=== PATIENT | female | born 1995 | race Caucasian/White ===

== ENCOUNTER 2017-09-12 10:13 | Outpatient (CLI) | payer OTHER, MEDICAID ==
[2017-09-12 11:27] LABS: HEMATOCRIT 39.6 % (36.0-47.0); HEMOGLOBIN 13.6 g/dl (12.0-16.0); MEAN CORPUSCULAR HEMOGLOBIN 29.3 pg (27.0-33.0); MEAN CORPUSCULAR HGB CONC 34.3 g/dl (32.0-36.5); MEAN CORPUSCULAR VOLUME 85.3 fl (80.0-96.0); PLATELET COUNT, AUTOMATED 283 10^3/uL (150-450); RED BLOOD COUNT 4.64 10^6/uL (4.00-5.40); RED CELL DISTRIBUTION WIDTH 12.6 % (11.5-14.5); WHITE BLOOD COUNT 14.1 10^3/uL (4.0-10.0)
[2017-09-12] MEDS: NS 1,000 ML IV ×2 (11:27→13:40)
[2017-09-12] MEDS: ONDANSETRON 4 MG ORAL DISINTEGRATING TAB (S0181) SL (11:43)
[2017-09-12 11:56] LABS: AMPHETAMINES URINE REFLEX NEGATIVE (NEGATIVE); BARBITURATES URINE REFLEX NEGATIVE (NEGATIVE); BENZODIAZEPINES URINE REFLEX NEGATIVE (NEGATIVE); CANNABINOIDS URINE REFLEX NEGATIVE (NEGATIVE); COCAINE METABOLITE URINE REFLE NEGATIVE (NEGATIVE); METHADONE URINE REFLEX NEGATIVE (NEGATIVE); OPIATES URINE REFLEX NEGATIVE (NEGATIVE); PHENCYCLIDINE URINE REFLEX NEGATIVE (NEGATIVE)
[2017-09-12 12:01] LABS: ALBUMIN/GLOBULIN RATIO 0.83 (1.00-1.93); ALKALINE PHOSPHATASE 85 U/L (45-117); ALT/SGPT 15 U/L (12-78); AMYLASE 66 U/L (25-115); ANION GAP 11 MEQ/L (8-16); AST/SGOT 19 U/L (7-37); BILIRUBIN,TOTAL 0.6 MG/DL (0.2-1.0); BLOOD UREA NITROGEN 6 MG/DL (7-18); CALCIUM LEVEL 8.8 MG/DL (8.5-10.1); CARBON DIOXIDE LEVEL 24 MEQ/L (21-32); CHLORIDE LEVEL 106 MEQ/L (98-107); CREATININE FOR GFR 0.51 MG/DL (0.55-1.30); GLOMERULAR FILTRATION RATE > 60.0 (>60); GLUCOSE, FASTING 109 MG/DL (70-100); LIPASE 143 U/L (73-393); POTASSIUM SERUM 3.6 MEQ/L (3.5-5.1); SODIUM LEVEL 141 MEQ/L (136-145); TOTAL PROTEIN 6.6 GM/DL (6.4-8.2)
[2017-09-12] MEDS: SODIUM CHLORIDE 0.9% 1000 ML IV (13:41)
[2017-09-12 14:52] LABS: APPEARANCE, URINE HAZY (CLEAR); BACTERIA, URINE AUTO NEGATIVE (NEGATIVE); BILIRUBIN, URINE AUTO NEGATIVE (NEGATIVE); BLOOD, URINE BLOOD NEGATIVE (NEGATIVE); COLOR, URINE YELLOW (YELLOW); GLUCOSE, URINE (UA) AUTO 1+ mg/dL (NEGATIVE); KETONE, URINE AUTO 2+ mg/dL (NEGATIVE); LEUKOCYTE ESTERASE, URINE AUTO TRACE (NEGATIVE); MUCUS, URINE SMALL (NEGATIVE); NITRITE, URINE AUTO NEGATIVE (NEGATIVE); PROTEIN, URINE AUTO 1+ mg/dL (NEGATIVE); RBC, URINE AUTO 5 /HPF (0-3); SPECIFIC GRAVITY URINE AUTO 1.023 (1.002-1.035); SQUAMOUS EPITHELIAL CELL UR AU 3 /HPF (0-6); UROBILINOGEN, URINE AUTO 0.2 mg/dL (0.0-2.0); WBC, URINE AUTO 10 /HPF (0-3)
== END 2017-09-12 16:10 | disposition home or self-care (01) ==
LOC: M LDO 10:13
DX: O99.89 Other specified diseases and conditions complicating pregnancy, childbirth and the puerperium (principal); K29.00 Acute gastritis without bleeding; R11.0 Nausea; Z3A.28 28 weeks gestation of pregnancy
CPT/HCPCS: 82150

== ENCOUNTER → 2017-09-23 | Outpatient (CLI) | payer OTHER, MEDICAID ==
[2017-09-23 13:58] LABS: APPEARANCE, URINE MANUAL CLOUDY (CLEAR)
[2017-09-23 13:59] LABS: COLOR, URINE MANUAL AMBER (YELLOW); GLUCOSE, URINE (UA) MANUAL NEGATIVE (NEGATIVE); KETONE, URINE MANUAL NEGATIVE (NEGATIVE); PROTEIN, URINE MANUAL 1+ mg/dL (NEGATIVE)
[2017-09-23 14:00] LABS: BILIRUBIN, URINE MANUAL NEGATIVE (NEGATIVE); BLOOD URINE MANUAL POSITIVE (NEGATIVE); MICROSCOPIC INDICATED? MAN YES (NO); NITRITE, URINE MANUAL NEGATIVE (NEGATIVE); UROBILINOGEN, URINE MANUAL NORMAL (NORMAL)
[2017-09-23 14:02] LABS: LEUKOCYTE ESTERASE, URINE MAN POSITIVE (NEGATIVE)
[2017-09-23 14:03] LABS: BACTERIA, URINE SMALL AMOUNT; HYALINE CAST, URINE NONE SEEN /lpf (0-1); MICROSCOPIC EXAM PERFORMED; RBC, URINE TNTC /hpf (0-3); SQUAMOUS EPITHELIAL CELL URINE MOD AMOUNT /hpf (SMALL AMT)
[2017-09-23 14:06] LABS: BASO # 0.1 10^3/uL (0.0-0.2); BASO % 0.3 % (0.0-1.0); EOS # 0.1 10^3/uL (0.0-0.50); EOS % 0.7 % (0.0-3.0); HEMATOCRIT 34.2 % (36.0-47.0); HEMOGLOBIN 11.5 g/dl (12.0-16.0); IMMATURE GRANULOCYTE % 2.8 % (0-3.0); LYMPH # 2.5 10^3/uL (1.5-6.5); LYMPH % 17.2 % (24.0-44.0); MEAN CORPUSCULAR HEMOGLOBIN 29.2 pg (27.0-33.0); MEAN CORPUSCULAR HGB CONC 33.6 g/dl (32.0-36.5); MEAN CORPUSCULAR VOLUME 86.8 fl (80.0-96.0); MONO # 1.1 10^3/uL (0.0-0.8); MONO % 7.1 % (0.0-5.0); NEUTROPHILS # 10.6 10^3/uL (1.8-7.7); NEUTROPHILS % 71.9 % (36.0-66.0); PLATELET COUNT, AUTOMATED 337 10^3/uL (150-450); RED BLOOD COUNT 3.94 10^6/uL (4.00-5.40); RED CELL DISTRIBUTION WIDTH 12.5 % (11.5-14.5); WHITE BLOOD COUNT 14.7 10^3/uL (4.0-10.0)
[2017-09-23 14:16] LABS: GLUCOSE CHALLENGE TEST 1 HOUR 151 MG/DL (LESS THAN 140)
== END ==
LOC: M LAB 12:14
DX: Z34.83 Encounter for supervision of other normal pregnancy, third trimester (principal)
CPT/HCPCS: 82950

== ENCOUNTER → 2017-09-26 | Outpatient (CLI) | payer OTHER, MEDICAID ==
[2017-09-26 07:49] LABS: GLUCOSE, FASTING 86 MG/DL (LESS THAN 95)
[2017-09-26 09:02] LABS: 1 HR GLUCOSE 183 MG/DL (LESS THAN 180)
[2017-09-26 09:39] LABS: 2 HR GLUCOSE 149 MG/DL (LESS THAN 155)
[2017-09-26 10:53] LABS: 3 HR GLUCOSE 123 MG/DL (LESS THAN 140)
== END ==
LOC: M LAB 06:52
DX: Z36.89 Encounter for other specified antenatal screening (principal); Z3A.00 Weeks of gestation of pregnancy not specified
CPT/HCPCS: 82951

== ENCOUNTER → 2017-10-01 | Outpatient (CLI) | payer OTHER, MEDICAID | LOC: M RAD 09:05 | DX: R10.13 Epigastric pain (principal) | CPT/HCPCS: 76705 ==

== ENCOUNTER → 2017-11-04 | Outpatient (REF) | payer OTHER, MEDICAID | LOC: M LAB REF 16:49 | DX: Z34.83 Encounter for supervision of other normal pregnancy, third trimester (principal) | CPT/HCPCS: 87186 ==

== ENCOUNTER 2017-12-11 23:54 | Inpatient (IN) | payer OTHER, MEDICAID ==
[2017-12-12] MEDS: PENICILLIN G POTASSIUM IV 5 MU in D5W MINI-BAG PLUS 100 ML IV (01:16)
[2017-12-12] MEDS: LR 1,000 ML IV (01:16)
[2017-12-12] MEDS: miSOPROStol 50 MCG 1/2 TAB (S0191) SL ×2 (01:16→05:00)
[2017-12-12] MEDS ORDERED: TERBUTALINE SULFATE 1 MG/ML VIAL (J3105) As Ordered (01:31)
[2017-12-12 01:39] LABS: HEMOGLOBIN 11.7 g/dl (12.0-15.5); MEAN CORPUSCULAR HEMOGLOBIN 27.3 pg (27.0-33.0); MEAN CORPUSCULAR HGB CONC 33.4 g/dl (32.0-36.5); MEAN CORPUSCULAR VOLUME 81.6 fl (80.0-96.0); PLATELET COUNT, AUTOMATED 356 10^3/uL (150-450); RED BLOOD COUNT 4.29 10^6/uL (4.00-5.40); RED CELL DISTRIBUTION WIDTH 14.4 % (11.5-14.5); WHITE BLOOD COUNT 12.8 10^3/uL (4.0-10.0)
[2017-12-12] MEDS: TERBUTALINE SULFATE 1 MG/ML VIAL (J3105) SC (01:40)
[2017-12-12] MEDS: LACTATED RINGER'S 1000 ML IV (04:18)
[2017-12-12] MEDS: PENICILLIN G POTASSIUM IV 2.5 MU in APPROPRIATE DILUENT 1 EA IV ×3 (05:26→16:47)
[2017-12-12] MEDS ORDERED: OXYTOCIN DRIP 30 UNITS in APPROPRIATE DILUENT 1 EA IV ×2 (09:00→20:53)
[2017-12-12] MEDS ORDERED: FENTANYL 2MCG/ML ROPIVACAINE 0.2% IN 0.9% NACL 200ML IVBAG As Ordered (09:53)
[2017-12-12] MEDS ORDERED: ePHEDrine SULFATE 25 MG/5 ML(5MG/ML) SYRINGE As Ordered (12:35)
[2017-12-12] MEDS: ePHEDrine SULFATE 25 MG/5 ML(5MG/ML) SYRINGE IV ×2 (12:54→13:14)
[2017-12-12] MEDS ORDERED: REFRIGERATOR IV KEYS XX (13:00)
[2017-12-12] MEDS ORDERED: EPIDURAL COMMENT XX (13:00)
[2017-12-12] MEDS ORDERED: NALOXONE INJ 0.4 MG/1 ML VIAL (J2310) IV (13:00)
[2017-12-12] MEDS ORDERED: LACTATED RINGER'S 1000 ML IV (13:00)
[2017-12-12] MEDS ORDERED: EPIDURAL/PCA KEYS XX (13:00)
[2017-12-12] MEDS ORDERED: diphenhydrAMINE INJ 50MG/ML VIAL (J1200) IV (13:00)
[2017-12-12] MEDS ORDERED: ONDANSETRON 4MG/2ML VIAL (J2405) IV (13:00)
[2017-12-12] MEDS ORDERED: FENTANYL/ROPIVACAINE/NACL BAG 200 ML EPIDURAL (13:00)
[2017-12-12 20:02] LABS: CORD GAS ABE V -9.1; CORD GAS O2 SAT V 51.6 %; CORD GAS PCO2 V 48.5 mmHg; CORD GAS SBC V 16.3 MEQ/L; CORD GAS TCO2 V 20.5 MEQ/L
[2017-12-12 20:03] LABS: CORD GAS ABE A -10.1; CORD GAS HCO3 A 20.2 MEQ/L; CORD GAS O2 SAT A 24.9 %; CORD GAS PCO2 A 61.9 mmHg; CORD GAS PH A 7.131 UNITS; CORD GAS PO2 A 17.8 mmHg; CORD GAS TCO2 A 22.1 MEQ/L
[2017-12-12] MEDS ORDERED: DIBUCAINE 1% OINTMENT 30GM TOP (21:00)
[2017-12-12] MEDS ORDERED: ANUSOL HC CREAM 30GM TOP (21:00)
[2017-12-12] MEDS ORDERED: RHOGAM 300 MCG (1500 IU) INJ (J2790) IM (21:00)
[2017-12-12] MEDS ORDERED: MEASLES,MUMPS,RUBELLA VACCINE INJ (MMR-II) (90707) SC (21:00)
[2017-12-12] MEDS ORDERED: MOM 30ML SUSPENSION UDC PO (21:00)
[2017-12-12] MEDS ORDERED: METHYLERGONOVINE MALEATE 0.2 MG TAB PO (21:00)
[2017-12-12] MEDS ORDERED: DOCUSATE SODIUM 100 MG CAP PO (21:00)
[2017-12-13] MEDS: ACETAMINOPHEN 500 MG TAB PO ×2 (05:39→14:18)
[2017-12-13] MEDS: PRENATAL VITAMINS CHEWABLE TABLET PO (08:41)
[2017-12-14] MEDS: IBUPROFEN 800 MG TAB PO (01:23)
[2017-12-14] MEDS: PRENATAL VITAMINS CHEWABLE TABLET PO (08:03)
[2017-12-14] MEDS: ACETAMINOPHEN 500 MG TAB PO (08:03)
[2017-12-14] MEDS: ADACEL/BOOSTRIX VACCINE (DIPHTH/PERTUSS/ACELL/TETANUS)0.5ML SYR (90715) IM (13:30)
== END 2017-12-14 13:50 | disposition home or self-care (01) | DRG 540 ==
LOC: M LDI 23:54 → M OBS 12-12 21:46
PROVIDERS: Obstetrics & Gynecology
PROC: 3E0DXGC Introduction of Other Therapeutic Substance into Mouth and Pharynx, External Approach (ICD-10-PCS; 2017-12-11)
PROC: 10D00Z1 Extraction of Products of Conception, Low, Open Approach (ICD-10-PCS; principal; 2017-12-12)
DX: O66.0 Obstructed labor due to shoulder dystocia (principal); O48.0 Post-term pregnancy; Z37.0 Single live birth; Z3A.41 41 weeks gestation of pregnancy

== ENCOUNTER → 2022-01-09 | Outpatient (REF) | payer MEDICAID ==
[~2022-01-09] MED LIST: MOTR200T44 PO; PRENTAB9 PO; TYLE325T5 PO; ZOFR4TAB14 PO
[2022-01-09 13:22] LABS: APPEARANCE, URINE CLEAR (CLEAR); BACTERIA, URINE AUTO 1+ (NEGATIVE); BILIRUBIN, URINE AUTO NEGATIVE (NEGATIVE); BLOOD, URINE BLOOD NEGATIVE (NEGATIVE); COLOR, URINE COLORLESS (YELLOW); GLUCOSE, URINE (UA) AUTO NEGATIVE (NEGATIVE); KETONE, URINE AUTO NEGATIVE (NEGATIVE); LEUKOCYTE ESTERASE, URINE AUTO NEGATIVE (NEGATIVE); NITRITE, URINE AUTO NEGATIVE (NEGATIVE); PROTEIN, URINE AUTO NEGATIVE (NEGATIVE); RBC, URINE AUTO 0 /HPF (0-3); SPECIFIC GRAVITY URINE AUTO 1.001 (1.002-1.035); SQUAMOUS EPITHELIAL CELL UR AU 0 /HPF (0-6); UROBILINOGEN, URINE AUTO 0.2 mg/dL (0.0-2.0); WBC, URINE AUTO 0 /HPF (0-3)
== END ==
LOC: M LAB REF 09:00
PROVIDERS: ATTEND Physician Assistant Medical
DX: N39.0 Urinary tract infection, site not specified (principal)

== ENCOUNTER → 2022-01-10 | Outpatient (CLI) | payer MEDICAID ==
[2022-01-09 13:22] LABS: APPEARANCE, URINE CLEAR (CLEAR); BACTERIA, URINE AUTO 1+ (NEGATIVE); BILIRUBIN, URINE AUTO NEGATIVE (NEGATIVE); BLOOD, URINE BLOOD NEGATIVE (NEGATIVE); COLOR, URINE COLORLESS (YELLOW); GLUCOSE, URINE (UA) AUTO NEGATIVE (NEGATIVE); KETONE, URINE AUTO NEGATIVE (NEGATIVE); LEUKOCYTE ESTERASE, URINE AUTO NEGATIVE (NEGATIVE); NITRITE, URINE AUTO NEGATIVE (NEGATIVE); PROTEIN, URINE AUTO NEGATIVE (NEGATIVE); RBC, URINE AUTO 0 /HPF (0-3); SPECIFIC GRAVITY URINE AUTO 1.001 (1.002-1.035); SQUAMOUS EPITHELIAL CELL UR AU 0 /HPF (0-6); UROBILINOGEN, URINE AUTO 0.2 mg/dL (0.0-2.0); WBC, URINE AUTO 0 /HPF (0-3)
== END ==
LOC: M WHC 01-09 11:48
PROVIDERS: ATTEND Physician Assistant Medical
DX: N39.0 Urinary tract infection, site not specified (principal); N83.202 Unspecified ovarian cyst, left side

== ENCOUNTER → 2022-02-05 | Outpatient (REF) | payer MEDICAID | LOC: M LAB REF 11:08 | PROVIDERS: ATTEND Physician Assistant Medical | DX: J02.9 Acute pharyngitis, unspecified (principal); R05.9 Cough, unspecified ==

== ENCOUNTER → 2022-05-08 | Outpatient (REF) | payer OTHER | LOC: M LAB REF 17:44 | PROVIDERS: ATTEND Physician Assistant | DX: Z12.4 Encounter for screening for malignant neoplasm of cervix (principal); Z87.42 Personal history of other diseases of the female genital tract ==

== ENCOUNTER → 2022-06-12 | Outpatient (REF) | payer OTHER | LOC: M LAB REF 17:17 | PROVIDERS: ATTEND Physician Assistant | DX: Z32.01 Encounter for pregnancy test, result positive (principal) ==

== ENCOUNTER 2022-07-22 17:48 | Emergency (ER) | payer OTHER ==
[~2022-07-22] VITALS: Ht 160 cm; Wt 72.7 kg
[2022-07-22] MEDS ORDERED: ANTIBIOT (18:01)
[2022-07-22] MEDS ORDERED: ONDA4TAB6 PO (18:01)
[2022-07-22 19:47] LABS: BASO % 0.3 % (0.0-1.0); EOS # 0.1 10^3/uL (0.0-0.5); EOS % 0.4 % (0.0-3.0); HEMOGLOBIN 12.9 g/dl (12.0-15.5); LYMPH # 2.3 10^3/uL (1.5-5.0); LYMPH % 19.8 % (24.0-44.0); MEAN CORPUSCULAR HEMOGLOBIN 28.2 pg (27.0-33.0); MEAN CORPUSCULAR HGB CONC 33.9 g/dl (32.0-36.5); MEAN CORPUSCULAR VOLUME 83.2 fl (80.0-96.0); MONO # 0.8 10^3/uL (0.0-0.8); MONO % 6.9 % (2.0-8.0); NEUTROPHILS # 8.3 10^3/uL (1.5-8.5); NEUTROPHILS % 72.3 % (36.0-66.0); PLATELET COUNT, AUTOMATED 359 10^3/uL (150-450); RED BLOOD COUNT 4.57 10^6/uL (4.00-5.40); WHITE BLOOD COUNT 11.5 10^3/uL (4.0-10.0)
[2022-07-22 20:16] LABS: BLOOD UREA NITROGEN 6 MG/DL (9-23); CALCIUM LEVEL 9.2 MG/DL (8.5-10.1); CARBON DIOXIDE LEVEL 24 MMOL/L (20-31); CHLORIDE LEVEL 103 MMOL/L (98-107); CREATININE FOR GFR 0.43 MG/DL (0.55-1.30); GLOMERULAR FILTRATION RATE > 60.0 (>60); GLUCOSE, FASTING 83 MG/DL (60-100); POTASSIUM SERUM 3.9 MMOL/L (3.5-5.1); SODIUM LEVEL 136 MMOL/L (136-145)
[2022-07-22 20:44] LABS: HCG, SERUM QUANTITATIVE 162034.7 MIU/ML (<4.2)
[2022-07-22] MEDS ORDERED: NS 1,000 ML IV ONE (20:55)
[2022-07-22] MEDS ORDERED: METOCLOPRAMIDE INJ 10MG/2ML VIAL IV ONE (20:55)
[2022-07-22] MEDS ORDERED: REGL5TAB2 PO ×2 (22:25→22:42)
[2022-07-22 22:40] VITALS: BP 117/70
== END 2022-07-22 22:45 | disposition home or self-care (01) ==
LOC: M ED 17:48
DX: O21.9 Vomiting of pregnancy, unspecified (principal); O99.341 Other mental disorders complicating pregnancy, first trimester; Z3A.11 11 weeks gestation of pregnancy

== ENCOUNTER 2022-09-26 11:15 | Outpatient (CLI) | payer OTHER ==
[2022-09-26] VITALS (7 sets, daily range): BP systolic 104–128; BP diastolic 58–83
[~2022-09-26] VITALS: Ht 160 cm; Wt 75.5 kg
[~2022-09-26 11:15] MED LIST changes: +ANTIBIOT; +ONDA4TAB6 PO; +REGL5TAB2 PO
[2022-09-26] MEDS ORDERED: LR 1,000 ML IV ONE (11:40)
[2022-09-26 12:56] LABS: BASO % 0.3 % (0.0-1.0); EOS # 0.1 10^3/uL (0.0-0.5); EOS % 0.8 % (0.0-3.0); HEMATOCRIT 37.6 % (36.0-47.0); HEMOGLOBIN 12.8 g/dl (12.0-15.5); LYMPH # 1.7 10^3/uL (1.5-5.0); LYMPH % 16.8 % (24.0-44.0); MEAN CORPUSCULAR VOLUME 85.3 fl (80.0-96.0); MONO # 0.7 10^3/uL (0.0-0.8); MONO % 7.4 % (2.0-8.0); NEUTROPHILS # 7.4 10^3/uL (1.5-8.5); NEUTROPHILS % 74.3 % (36.0-66.0); PLATELET COUNT, AUTOMATED 246 10^3/uL (150-450); RED BLOOD COUNT 4.41 10^6/uL (4.00-5.40); WHITE BLOOD COUNT 9.9 10^3/uL (4.0-10.0)
== END 2022-09-26 14:53 | disposition home or self-care (01) ==
LOC: M LDO 11:15
PROVIDERS: ATTEND Registered Nurse
DX: O99.282 Endocrine, nutritional and metabolic diseases complicating pregnancy, second trimester (principal); E86.0 Dehydration; O21.8 Other vomiting complicating pregnancy; O26.892 Other specified pregnancy related conditions, second trimester; R42 Dizziness and giddiness; R53.1 Weakness; Z3A.20 20 weeks gestation of pregnancy
CPT/HCPCS: 59025; 85025; 96360; G0463

== ENCOUNTER 2022-12-25 13:43 | Outpatient (CLI) | payer OTHER ==
[~2022-12-25] VITALS: Ht 160 cm; Wt 84.1 kg
[2022-12-25 14:05] VITALS: BP 113/69
[2022-12-25] MEDS ORDERED: FAMO20TA5 PO (14:13)
[2022-12-25] MEDS ORDERED: HOME MED LIST COMPLETE! XX SCH (14:15)
[2022-12-25] MEDS ORDERED: ACETAMINOPHEN 500 MG TAB PO ONE (14:50)
[2022-12-25 15:17] LABS: APPEARANCE, URINE CLEAR (CLEAR); BACTERIA, URINE AUTO NEGATIVE (NEGATIVE); BILIRUBIN, URINE AUTO NEGATIVE (NEGATIVE); BLOOD, URINE BLOOD NEGATIVE (NEGATIVE); COLOR, URINE YELLOW (YELLOW); GLUCOSE, URINE (UA) AUTO NEGATIVE (NEGATIVE); KETONE, URINE AUTO NEGATIVE (NEGATIVE); LEUKOCYTE ESTERASE, URINE AUTO NEGATIVE (NEGATIVE); MUCUS, URINE SMALL (NEGATIVE); NITRITE, URINE AUTO NEGATIVE (NEGATIVE); PROTEIN, URINE AUTO NEGATIVE (NEGATIVE); RBC, URINE AUTO 2 /HPF (0-3); SPECIFIC GRAVITY URINE AUTO 1.012 (1.002-1.035); SQUAMOUS EPITHELIAL CELL UR AU 1 /HPF (0-6); UROBILINOGEN, URINE AUTO 0.2 mg/dL (0.0-2.0); WBC, URINE AUTO 2 /HPF (0-3)
== END 2022-12-25 15:35 | disposition home or self-care (01) ==
LOC: M LDO 13:43
PROVIDERS: ATTEND Obstetrics & Gynecology
DX: O26.893 Other specified pregnancy related conditions, third trimester (principal); M54.50 Low back pain, unspecified; R25.2 Cramp and spasm; Z3A.33 33 weeks gestation of pregnancy
CPT/HCPCS: 59025; 81001; G0463

== ENCOUNTER → 2023-01-10 | Outpatient (REF) | payer OTHER ==
[~2023-01-10] MED LIST changes: +FAMO20TA5 PO
== END ==
LOC: M SFHCWAGY 13:14
PROVIDERS: ATTEND Obstetrics & Gynecology
DX: O09.293 Supervision of pregnancy with other poor reproductive or obstetric history, third trimester (principal)

== ENCOUNTER → 2023-08-13 | Outpatient (REF) | payer OTHER | LOC: M SFHCWAGY 17:50 | PROVIDERS: ATTEND Obstetrics & Gynecology | DX: Z01.419 Encounter for gynecological examination (general) (routine) without abnormal findings (principal) ==

== ENCOUNTER → 2024-12-03 | Outpatient (REF) | payer OTHER ==
[~2024-12-03] MED LIST changes: +ONDA-282 PO; -ONDA4TAB6 PO
== END ==
LOC: M SFHCWAGY 10:21
PROVIDERS: ATTEND Obstetrics & Gynecology
DX: Z12.4 Encounter for screening for malignant neoplasm of cervix (principal); R87.610 Atypical squamous cells of undetermined significance on cytologic smear of cervix (ASC-US)

== ENCOUNTER → 2025-03-18 | Outpatient (CLI) | payer OTHER ==
[2025-03-18 13:31] LABS: PLATELET COUNT, AUTOMATED 280 10^3/uL (150-450)
[2025-03-18 13:59] LABS: HIV 1&2 SCREEN NEGATIVE (NEGATIVE)
[2025-03-18 14:08] LABS: HEPATITIS C VIRUS ABY INDEX < 0.02 INDEX (<0.8)
[2025-03-18 14:41] LABS: Trichomonas vaginalis (AMP) NOT DETECTED (NEGATIVE)
[2025-03-18 15:06] LABS: GC DNA AMPLIFICATION NEGATIVE (NEGATIVE)
== END ==
LOC: M PLALAB 10:48
PROVIDERS: ATTEND Advanced Practice Midwife
DX: O09.299 Supervision of pregnancy with other poor reproductive or obstetric history, unspecified trimester (principal); Z3A.00 Weeks of gestation of pregnancy not specified

== ENCOUNTER → 2025-03-25 | Outpatient (CLI) | payer OTHER | LOC: M PLALAB 11:02 | PROVIDERS: ATTEND Advanced Practice Midwife | DX: Z53.20 Procedure and treatment not carried out because of patient's decision for unspecified reasons (principal) ==

== ENCOUNTER → 2025-05-18 | Outpatient (CLI) | payer OTHER | LOC: M WHC 09:58 | PROVIDERS: ATTEND Nurse Practitioner Family | DX: Z34.80 Encounter for supervision of other normal pregnancy, unspecified trimester (principal) ==

== ENCOUNTER 2025-05-28 17:20 | Outpatient (CLI) | payer OTHER ==
[~2025-05-28] VITALS: Ht 165.1 cm; Wt 84.5 kg
[2025-05-28 17:36] VITALS: BP 127/77
[2025-05-28] MEDS ORDERED: HOME MED LIST COMPLETE! XX SCH (17:50)
[2025-05-28 19:01] LABS: PLATELET COUNT, AUTOMATED 276 10^3/uL (150-450)
[2025-05-28 19:08] LABS: AMORPHOUS SEDIMENT SMALL (NEGATIVE); APPEARANCE, URINE CLEAR (CLEAR); BACTERIA, URINE AUTO NEGATIVE (NEGATIVE); BILIRUBIN, URINE AUTO NEGATIVE (NEGATIVE); BLOOD, URINE BLOOD NEGATIVE (NEGATIVE); GLUCOSE, URINE (UA) AUTO NEGATIVE (NEGATIVE); KETONE, URINE AUTO NEGATIVE (NEGATIVE); LEUKOCYTE ESTERASE, URINE AUTO NEGATIVE (NEGATIVE); NITRITE, URINE AUTO NEGATIVE (NEGATIVE); PROTEIN, URINE AUTO NEGATIVE (NEGATIVE); RBC, URINE AUTO 0 /HPF (0-3); SPECIFIC GRAVITY URINE AUTO 1.006 (1.002-1.035); SQUAMOUS EPITHELIAL CELL UR AU 1 /HPF (0-6); UROBILINOGEN, URINE AUTO 0.2 mg/dL (0.0-2.0); WBC, URINE AUTO 0 /HPF (0-3)
[2025-05-28 19:24] LABS: ALT/SGPT 11 U/L (7.0-40); AST/SGOT 24 U/L (<34); CALCIUM LEVEL 8.5 MG/DL (8.5-10.1); CARBON DIOXIDE LEVEL 21 MMOL/L (20-31); CHLORIDE LEVEL 109 MMOL/L (98-107); CREATININE FOR GFR 0.38 MG/DL (0.55-1.30); GLOMERULAR FILTRATION RATE > 90.0 (>60); POTASSIUM SERUM 4.0 MMOL/L (3.5-5.1); SODIUM LEVEL 141 MMOL/L (136-145)
[2025-05-28 20:37] VITALS: BP 129/81
[2025-05-28 22:23] VITALS: BP 96/63
== END 2025-05-28 22:50 | disposition home or self-care (01) ==
LOC: M LDO 17:20
PROVIDERS: ATTEND Advanced Practice Midwife
DX: O26.892 Other specified pregnancy related conditions, second trimester (principal); R06.02 Shortness of breath; R42 Dizziness and giddiness; Z3A.20 20 weeks gestation of pregnancy
CPT/HCPCS: 80053; 81001; 85027; 87086; G0463

== ENCOUNTER → 2025-06-24 | Outpatient (CLI) | payer OTHER | LOC: M WHC 10:07 | PROVIDERS: ATTEND Student in an Organized Health Care Education/Training Program | DX: Z34.82 Encounter for supervision of other normal pregnancy, second trimester (principal); Z3A.24 24 weeks gestation of pregnancy ==